=== PATIENT | female | born 1990 | race Caucasian/White ===

== ENCOUNTER 2017-04-23 17:32 | Emergency (ER) | payer OTHER ==
[~2017-04-23] VITALS: Ht 157.5 cm; Wt 104.0 kg
[~2017-04-23 17:32] MED LIST: ALBU18HF INH; AMOX500C2 PO; Benzocaine TOPICAL; DOCU-41 PO; IBUP800T28 PO; Lanolin TOPICAL; OXYC1TAB24 PO; PREN-121 PO; RANI75TA30 PO; TUCPAD TOPICAL
[2017-04-23 17:40] VITALS: BP 128/85; PULSE 68; RESP 18; O2SAT 100
--- NOTE | 2017-04-23 18:05 | ED.REPORT ---
HPI-Syncope Date of Service Apr 23, 2017 ED Provider: Cedric Quinteros DO A 26 year old female with a history of asthma and borderline diabetes presents to the ED complaining of a syncopal episode. The pt had her wisdom teeth pulled six days ago and has been taking ibuprofen and hydrocodone for pain since. Her last hydrocodone was at 10:00 today. At 16:00 today, the pt became dizzy and lightheaded and experienced a syncopal episode. The pt's knees buckled and she fell to her side. The pt's , who witness the fall, does not believe that the pt hit her head. In the ED, the pt only complains of mouth pain from her surgery. Nursing Notes Stated Complaint: FAINTED, GLF, MOUTH PAIN Chief Complaint: General Complaint Nursing Notes Reviewed: Yes Allergies: Coded Allergies: No Known Allergies (Verified Allergy, Unknown, 04/15/16) Scheduled Albuterol Sulfate (Ventolin HFA Inhaler) 200 Puff/18 Gm Inhaler 1 PUFF INH Q4 Amoxicillin (Amoxicillin) 500 Mg Capsule 500 MG PO TID START 04/16/17 FOR 7 DAYS Scheduled PRN Ibuprofen (Ibuprofen) 800 Mg Tablet 800 MG PO Q6H PRN PRN For Pain oxyCODONE-Acetaminophen 5-325 mg (oxyCODONE-Acetaminophen 5-325 mg) 1 Each Tablet 1-2 TAB PO Q4H PRN PRN For Pain General Time Seen by Provider: 18:04 Chief Complaint Other (Syncope) Hx Obtained From: Patient Arrived By: Walk-in Onset Occurred: 1 - 4 hours ago Recent Healthcare: Recent doctor visit, Recent hospitalization Similar Sx Previous: No Past Medical History Past Medical History asthma borderline diabetes Past Surgical History none reported Smoking History Unknown if Ever Smoker Social History Other Social History: Good social support, Ambulatory Status Independent Review of Systems Review of Systems Note: mouth pain Respiratory: Denies: Non-productive cough, Shortness of breath Cardiovascular: Denies: Chest pain GI: Denies: Abdominal pain, Vomiting Musculoskeletal: Denies: Back pain Skin: Denies Rash Neurologic: Reports: Dizziness, Lightheaded, Syncope Complete sys rev & neg: except as marked. Physical Exam Initial Vital Signs Vital Signs (First) Date Time Temp Pulse Resp B/P Pulse Ox O2 Delivery O2 Flow Rate FiO2 04/23/17 17:40 36.4 68 18 128/85 100 04/23/17 19:39 Room Air Initial VS: Reviewed General/Constitutional: Awake, Alert Respiratory / Chest: Atraumatic, Breath sounds NL, Breath sounds = bilat, No respiratory distress Cardiovascular: Heart rate NL, Regular rhythm, Heart sounds NL Lower Extremity / Pelvis / MS: Atraumatic, Full range of motion Neurologic: Oriented X3, Speech NL, No motor deficits, No sensory deficits Head / Eyes: Atraumatic, Normocephalic, PERRL, EOMI ENT: Atraumatic, Airway patent, Mucous membranes moist Neck: Atraumatic, Supple, Full range of motion Abdomen: Atraumatic, Soft, Non-tender Back: Atraumatic, Full range of motion Skin: Atraumatic, Color NL, No rash, Warm, Dry Psychiatric: Affect NL, Mood NL Upper Extremity / MS: Atraumatic, Full range of motion Interpretation & Diagnostics Lab Results Interpretation Result Diagram: 04/23/17 1820 04/23/17 1820 Test 04/23/17 18:20 04/23/17 19:20 White Blood Count 7.8th/mm3 (3.8-10.1) Red Blood Count 4.37mil/mm3 (3.90-5.20) Hemoglobin 13.7g/dL (12.0-15.6) Hematocrit 41.7% (35.0-46.0) Mean Corpuscular Volume 95.4fL (81-100) Mean Corpuscular Hemoglobin 31.4pg (27.0-35.0) Mean Corpuscular Hemoglobin Concent 32.9% (32.0-37.0) Red Cell Distribution Width 12.5% (12.3-15.4) Platelet Count 298bil/L (150-400) Neutrophils (%) (Auto) 53.4% (40-74) Lymphocytes (%) (Auto) 34.7% (14-46) Monocytes (%) (Auto) 8.5% (4-12) Eosinophils (%) (Auto) 2.1% (0-5) Basophils (%) (Auto) 1.0% (0-3) D-Dimer < 0.50mg/L FEU (<0.50) Sodium Level 140mEq/L (134-144) Potassium Level 3.8mEq/L (3.5-5.2) Chloride Level 102mEq/L (97-108) Carbon Dioxide Level 25mmol/L (18-29) Blood Urea Nitrogen 25mg/dL (6-20) Creatinine 0.79mg/dL (0.57-1.00) Estimat Glomerular Filtration Rate 126mL/min (>59) Glucose Level 107mg/dL (60-99) Calcium Level 9.4mg/dL (8.5-10.1) Magnesium Level 2.4mg/dL (1.6-2.6) Total Bilirubin 0.2mg/dL (0.0-1.2) Aspartate Amino Transf (AST/SGOT) 18U/L (0-50) Alanine Aminotransferase (ALT/SGPT) 14U/L (0-32) Alkaline Phosphatase 109U/L (25-150) Troponin T < 0.010ug/L (0.0-0.011) Total Protein 7.0g/dL (6.4-8.4) Albumin 4.1g/dL (3.4-5.0) Hold Chew Top Tube Received (Received) Human Chorionic Gonadotropin, Qual Negative (Negative) Pulse Oximetry Interpretation Pulse Oximetry Interpretation: 100% on room air Pulse Oximetry: Pulse Ox normal ECG Interpretation ECG Interpretation: normal sinus rhythm with a rate of 66 Time: 18:02 Interpreted by: ED physician Re-Eval/Medical Decision Med Decision/Clinical Course Pulmonary emboli unlikely based on history, physical, pulmonary NH rule out criteria negative d-dimer. Troponin and EKG are reassuring. I suspect that dehydration and the opiates played a role. Her BUN/creatinine ratio is greater than 30. She was hydrated with felt well. She will be discharged home with close outpatient follow-up. I did recommend that she avoid the hydrocortisone in the future. Source of Hx: Old records Re-Evaluation/Progress : Time of Eval: 20:30 Re-Evaluation/Progress Note: Pt rechecked, who is resting comfortably. The diagnosis and plan for discharge is discussed. The pt understands and agrees with the plan. All questions are addressed at this time. Counseled Regarding: Diagnosis, Lab results, Need for follow-up, When/why to return to ED Discharge & Departure Impression: Primary Impression: Syncope Syncope type: unspecified Qualified Code: R55 - Syncope and collapse Additional Impression: Dehydration Disposition: Home Discharge Condition All VS Reviewed: Yes Condition: Stable Patient Instructions: Dehydration (ED), Syncope (ED) Additional Instructions: The laboratory work shows evidence of dehydration. Your EKG and heart blood tests were normal. Your blood clot blood test was negative. The electrolytes are normal. I suspect that the passing out is related to dehydration as well as the opiates. I recommend that you use ibuprofen for the pain and try to avoid using the opiates. All opiates have this potential side effect. Drink plenty of liquids. Stand up slowly. Do not drive while under the influence of the opiates. Return if any problems or any new or worrisome symptoms. Set up a follow-up with your primary care physician. Call tomorrow to arrange this. Referrals: Johnnie Nelson MD (PCP) [facility] Attestation Portions of this note were transcribed by Emma Vines. I, Dr. Quinteros personally performed the history, physical exam and medical decision-making; I reviewed and confirmed the accuracy of the information in the transcribed note. Signed by: Suman Whitley, 04/23/17 and 2118. copies to: Johnnie Nelson MD, Todd P DO Apr 23, 2017 18:05 EMMA VINES Apr 23, 2017 18:14
[2017-04-23] MEDS ORDERED: 0.9% Sodium Chloride 1,000 ML IV ONE ×2 (18:10→18:45)
[2017-04-23 18:29] LABS: EOSINOPHILS % (AUTO) 2.1 % (0-5); MONOCYTES % (AUTO) 8.5 % (4-12); Mean Corpuscular Hemoglobin 31.4 pg (27.0-35.0); Mean Corpuscular Volume 95.4 fL (81-100); NEUTROPHILS % (AUTO) 53.4 % (40-74); Platelet Count 298 bil/L (150-400)
[2017-04-23] MEDS ORDERED: HYDROcodone-APAP 5-325 mg Tablet PO ONE (18:45)
[2017-04-23 19:06] LABS: Magnesium 2.4 mg/dL (1.6-2.6)
[2017-04-23 19:07] LABS: TROPONIN T < 0.010 ug/L (0.0-0.011)
[2017-04-23 19:39] VITALS: BP 148/62; PULSE 78; RESP 20; O2SAT 100
[2017-04-23 20:38] VITALS: BP 143/53
== END 2017-04-23 20:44 | disposition home or self-care (01) ==
LOC: SED 17:32
DX: R55 Syncope and collapse (principal); E86.0 Dehydration; G89.18 Other acute postprocedural pain; W19.XXXA Unspecified fall, initial encounter; Y93.89 Activity, other specified; Y92.9 Unspecified place or not applicable; Y99.8 Other external cause status; J45.909 Unspecified asthma, uncomplicated; R73.03 Prediabetes
CPT/HCPCS: 36415; 80053; 83735; 84484; 84703; 85025; 85378; 93005; 96360; 99285; J7030